=== PATIENT | female | born 1995 | race Caucasian/White ===

== ENCOUNTER 2018-08-13 05:58 | Inpatient (IN) ==
[2018-08-13] MEDS ORDERED: ONDANSETRON 4 MG/2 ML VIAL IV PRN ×2 (06:13→18:05)
[2018-08-13] MEDS ORDERED: MEPERIDINE 50 MG/1 ML VIAL IV PRN (06:13)
[2018-08-13] MEDS ORDERED: INFLUENZA VIRUS VACCINE 0.5 ML SYRINGE IM ONE (06:20)
[2018-08-13] MEDS ORDERED: OXYTOCIN/LR 20 UNIT/1,000 ML BAG IV SCH (06:30)
[2018-08-13] MEDS ORDERED: LACTATED RINGERS 1,000 ML IV SCH (06:30)
[2018-08-13 07:10] LABS: Basophils % 0.5 % (0.0-0.8); Eosinophils % 0.4 % (0.00-10.9); Hematocrit 32.4 VOL% (35.7-47.0); Hemoglobin 10.1 GM/DL (12.0-16.0); Immature Granulocytes % 0.5 %; Immature Granulocytes Absolute 0.03 #; Lymphocytes # 1.3 10*3/uL (1.4-4.0); Lymphocytes % 23.6 % (21.3-54.2); Mean Corpuscular HGB Conc 31.2 GM/DL (32-36); Mean Corpuscular Hemoglobin 27 PG (27-34); Mean Corpuscular Volume 86.2 FL (87-102); Mean Platelet Volume 11.7 FL (9.6-12.0); Monocytes # 0.5 10*3/uL (0.11-0.8); Monocytes % 8.8 % (1.7-12.7); Neutrophils # 3.7 10*3/uL (1.4-7.4); Neutrophils % 66.2 % (38.7-73.9); Platelet Count 180 T/CUMM (130-400); Red Blood Count 3.76 MC/CUMM (3.8-5.5); Red Cell Distribution Width 14.6 % (9.3-17.3); White Blood Count 5.6 T/CUMM (4-12)
[2018-08-13 07:48] LABS: Albumin 2.7 G/DL (3.4-5.0); Bilirubin,Total 1.1 MG/DL (0.2-1.0); Calcium 8.8 MG/DL (8.5-10.1); Osmolality,Calculated 267.1 MOS/KG (273-304); Potassium 3.9 MMOL/L (3.5-5.1)
[2018-08-13] MEDS ORDERED: FAMOTIDINE 20 MG/2 ML VIAL IV ONE (10:40)
[2018-08-13] MEDS ORDERED: CITRIC ACID/SODIUM CITRATE 30 ML UDCUP PO ONE (10:40)
[2018-08-13] MEDS ORDERED: ePHEDrine 50 MG/ML AMP ONE (10:51)
[2018-08-13] MEDS ORDERED: CARBOPROST TROMETHAMINE 250 MCG/ML AMP IM ONE ×2 (10:53→11:44)
[2018-08-13] MEDS ORDERED: fentaNYL 2 MCG/ROPIV 0.2% EPID 100 ML EPIDURAL SCH (11:00)
[2018-08-13] MEDS ORDERED: miSOPROStol 200 MCG TABLET ONE (11:44)
[2018-08-13] MEDS ORDERED: TRANEXAMIC ACID 1,000 MG/10 ML VIAL ONE (11:44)
[2018-08-13] MEDS ORDERED: METHYLERGONOVINE 0.2 MG/1 ML AMP ONE (11:44)
[2018-08-13] MEDS ORDERED: OXYTOCIN/LR 20 UNIT/1,000 ML BAG IV ONE (11:44)
[2018-08-13 13:20] LABS: Cord Venous Blood PO2 35.3
[2018-08-13] MEDS ORDERED: BISACODYL 10 MG SUPP RECTAL PRN (16:11)
[2018-08-13] MEDS ORDERED: RHO(D) IMMUNE GLOBULIN 300 MCG SYRINGE IM ONE (16:11)
[2018-08-13] MEDS ORDERED: WITCH HAZEL PADS 100/JAR TOP PRN (16:11)
[2018-08-13] MEDS ORDERED: DIPH/TET/ACEL PERT BOOSTER VACCINE 0.5 ML VIAL IM ONE (16:11)
[2018-08-13] MEDS ORDERED: LANOLIN 50% CREAM 0.3 OZ TUBE TOP PRN (16:11)
[2018-08-13] MEDS ORDERED: HYDROCORTISONE 2.5% RECTAL CREAM 30 GM TUBE TOP PRN (16:11)
[2018-08-13] MEDS ORDERED: ACETAMINOPHEN 325 MG TABLET PO PRN (16:11)
[2018-08-13] MEDS ORDERED: MEASLES/MUMPS/RUBELLA VACCINE 0.5 ML VIAL SUBCUT ONE (16:11)
[2018-08-13] MEDS ORDERED: ACETAMINOPHEN/CODEINE 300-30 MG TABLET PO PRN (16:11)
[2018-08-13] MEDS ORDERED: BENZOCAINE 20%/MENTHOL 0.5% SPRAY 56 GM CAN TOP PRN (16:11)
[2018-08-13] MEDS ORDERED: oxyCODONE/ACETAMINOPHEN 5-325 MG TABLET PO PRN ×2 (16:11)
[2018-08-13] MEDS: DOCUSATE SODIUM 100 MG CAPSULE PO SCH (21:35)
[2018-08-13] MEDS: IBUPROFEN 800 MG TABLET PO PRN (22:05)
[2018-08-14 05:36] LABS: Basophils % 0.2 % (0.0-0.8); Eosinophils % 0.3 % (0.00-10.9); Hematocrit 27.6 VOL% (35.7-47.0); Hemoglobin 8.7 GM/DL (12.0-16.0); Immature Granulocytes % 0.5 %; Immature Granulocytes Absolute 0.05 #; Lymphocytes # 1.5 10*3/uL (1.4-4.0); Lymphocytes % 16.1 % (21.3-54.2); Mean Corpuscular HGB Conc 31.5 GM/DL (32-36); Mean Corpuscular Hemoglobin 27 PG (27-34); Mean Corpuscular Volume 86.5 FL (87-102); Mean Platelet Volume 11.7 FL (9.6-12.0); Monocytes # 0.9 10*3/uL (0.11-0.8); Monocytes % 9.3 % (1.7-12.7); Neutrophils % 73.6 % (38.7-73.9); Platelet Count 136 T/CUMM (130-400); Red Blood Count 3.19 MC/CUMM (3.8-5.5); Red Cell Distribution Width 14.5 % (9.3-17.3); White Blood Count 9.6 T/CUMM (4-12)
[2018-08-14] MEDS: DOCUSATE SODIUM 100 MG CAPSULE PO SCH ×2 (09:37→20:26)
[2018-08-14] MEDS: FERROUS SULFATE 325 MG TABLET PO SCH ×2 (09:37→20:26)
[2018-08-14] MEDS: IBUPROFEN 800 MG TABLET PO PRN (09:39)
[2018-08-15 07:52] VITALS: BP 113/76
[2018-08-15] MEDS: DOCUSATE SODIUM 100 MG CAPSULE PO SCH (09:27)
[2018-08-15] MEDS: FERROUS SULFATE 325 MG TABLET PO SCH (09:27)
[2018-08-15] MEDS ORDERED: INFLUENZA VIRUS VACCINE 0.5 ML SYRINGE IM ONE (09:45)
== END 2018-08-15 16:00 | disposition home or self-care (01) | DRG 560 ==
LOC: N.LDOUT 05:58 → N.LD 06:00 → N.OB 15:56
PROVIDERS: ADMIT Obstetrics & Gynecology; ATTEND Obstetrics & Gynecology

== ENCOUNTER 2020-05-23 05:23 | Inpatient (IN) ==
[2020-05-23] MEDS ORDERED: OXYTOCIN/LR 20 UNIT/1,000 ML BAG IV SCH (05:30)
[2020-05-23] MEDS ORDERED: ONDANSETRON 4 MG/2 ML VIAL IV PRN ×2 (05:30→18:33)
[2020-05-23] MEDS ORDERED: ACETAMINOPHEN 325 MG TABLET PO PRN ×2 (05:30→18:33)
[2020-05-23] MEDS ORDERED: LACTATED RINGERS 1,000 ML IV PRN (05:30)
[2020-05-23] MEDS ORDERED: MEPERIDINE 50 MG/1 ML VIAL IV PRN (05:30)
[2020-05-23] MEDS ORDERED: BUTORPHANOL 2 MG/ML VIAL IV PRN (05:30)
[2020-05-23] MEDS ORDERED: INFLUENZA VIRUS VACCINE 0.5 ML SYRINGE IM ONE (05:40)
[2020-05-23 05:59] LABS: Basophils % 0.3 % (0.0-0.8); Eosinophils # 0.1 10*3/uL (0.0-0.87); Eosinophils % 1.6 % (0.00-10.9); Hematocrit 31.5 VOL% (35.7-47.0); Hemoglobin 10.2 GM/DL (12.0-16.0); Immature Granulocytes % 0.5 %; Immature Granulocytes Absolute 0.03 #; Lymphocytes # 1.5 10*3/uL (1.4-4.0); Lymphocytes % 25.2 % (21.3-54.2); Mean Corpuscular HGB Conc 32.4 GM/DL (32-36); Mean Corpuscular Volume 86.5 FL (87-102); Mean Platelet Volume 11.2 FL (9.6-12.0); Monocytes % 7.4 % (1.7-12.7); Platelet Count 142 T/CUMM (130-400); Red Blood Count 3.64 MC/CUMM (3.8-5.5); Red Cell Distribution Width 13.6 % (9.3-17.3); White Blood Count 6.1 T/CUMM (4-12)
[2020-05-23 06:52] LABS: Bilirubin,Urine Negative (Negative); Blood, Urine Negative (Negative); Glucose,Urine (UA) Negative (Negative); Ketones,Urine Negative (Negative); Mucus,Urine Occasional /LPF (Occasional); Nitrite,Urine Negative (Negative); Protein,Urine Negative; Squamous Epithelial Cell,Urine Occasional /HPF (0-10); Urine Appearance CLEAR (Clear); Urine Color Yellow (Yellow); Urine Urobilinogen < 2.0 EU/DL (0.2-1.0)
[2020-05-23] MEDS ORDERED: FAMOTIDINE 20 MG/2 ML VIAL IV ONE (12:48)
[2020-05-23] MEDS ORDERED: PROMETHAZINE 25 MG/1 ML VIAL IM ONE (12:48)
[2020-05-23] MEDS ORDERED: NALOXONE 0.4 MG/ML VIAL IV PRN (12:48)
[2020-05-23] MEDS ORDERED: CITRIC ACID/SODIUM CITRATE 30 ML UDCUP PO ONE (12:48)
[2020-05-23] MEDS ORDERED: diphenhydrAMINE 50 MG/1 ML VIAL IV PRN ×2 (12:48)
[2020-05-23] MEDS ORDERED: hydrOXYzine HCL 25 MG/1 ML VIAL IM PRN (12:48)
[2020-05-23] MEDS ORDERED: ePHEDrine 50 MG/ML VIAL IV PRN (12:48)
[2020-05-23] MEDS ORDERED: LACTATED RINGERS 1,000 ML IV ONE (12:48)
[2020-05-23] MEDS ORDERED: fentaNYL 2 MCG/ROPIV 0.2% EPID 100 ML EPIDURAL SCH (13:00)
[2020-05-23 15:01] LABS: Cord Venous Blood HCO3 24.6 MMOL/L; Cord Venous Blood PCO2 37.3 MMHG; Cord Venous Blood PO2 33.5
[2020-05-23] MEDS ORDERED: WITCH HAZEL PADS 100/JAR TOP PRN (18:33)
[2020-05-23] MEDS ORDERED: BISACODYL 10 MG SUPP RECTAL PRN (18:33)
[2020-05-23] MEDS ORDERED: DIPH/TET/ACEL PERT BOOSTER VACCINE 0.5 ML VIAL IM ONE (18:33)
[2020-05-23] MEDS ORDERED: LANOLIN 50% CREAM 0.3 OZ TUBE TOP PRN (18:33)
[2020-05-23] MEDS ORDERED: HYDROCORTISONE 2.5% RECTAL CREAM 30 GM TUBE TOP PRN (18:33)
[2020-05-23] MEDS ORDERED: IBUPROFEN 800 MG TABLET PO PRN (18:33)
[2020-05-23] MEDS ORDERED: BENZOCAINE 20%/MENTHOL 0.5% SPRAY 56 GM CAN TOP PRN (18:33)
[2020-05-23] MEDS ORDERED: oxyCODONE/ACETAMINOPHEN 5-325 MG TABLET PO PRN ×2 (18:33)
[2020-05-23] MEDS: DOCUSATE SODIUM 100 MG CAPSULE PO SCH (21:35)
[2020-05-24 05:42] LABS: Basophils % 0.1 % (0.0-0.8); Eosinophils # 0.1 10*3/uL (0.0-0.87); Eosinophils % 0.7 % (0.00-10.9); Hematocrit 31.5 VOL% (35.7-47.0); Hemoglobin 10.2 GM/DL (12.0-16.0); Immature Granulocytes % 0.6 %; Immature Granulocytes Absolute 0.05 #; Lymphocytes # 1.2 10*3/uL (1.4-4.0); Lymphocytes % 13.4 % (21.3-54.2); Mean Corpuscular HGB Conc 32.4 GM/DL (32-36); Mean Platelet Volume 11.4 FL (9.6-12.0); Monocytes % 7.2 % (1.7-12.7); Platelet Count 145 T/CUMM (130-400); Red Blood Count 3.62 MC/CUMM (3.8-5.5); Red Cell Distribution Width 13.7 % (9.3-17.3); White Blood Count 8.7 T/CUMM (4-12)
[2020-05-24] MEDS: DOCUSATE SODIUM 100 MG CAPSULE PO SCH ×2 (08:56→21:25)
[2020-05-24] MEDS: ACETAMINOPHEN/CODEINE 300-30 MG TABLET PO PRN ×2 (18:36→22:43)
[2020-05-25 09:07] VITALS: BP 93/59
[2020-05-25 13:15] LABS: Bacteria,Urine Many /HPF (Few); Bilirubin,Urine Negative (Negative); Blood, Urine Moderate mg/dL (Negative); Glucose,Urine (UA) Negative (Negative); Ketones,Urine Negative (Negative); Nitrite,Urine Positive (Negative); Protein,Urine Negative; RBC,Urine 17 /HPF (0-4); Squamous Epithelial Cell,Urine Occasional /HPF (0-10); Urine Appearance Slightly Hazy (Clear); Urine Color Yellow (Yellow); Urine Specific Gravity 1.016 (1.001-1.035); WBC,Urine 60 /HPF (0-6)
== END 2020-05-25 13:45 | disposition home or self-care (01) | DRG 560 ==
LOC: N.LD 05:23 → N.OB 18:16
PROVIDERS: ADMIT Obstetrics & Gynecology; ATTEND Obstetrics & Gynecology

== ENCOUNTER 2022-03-27 00:02 | Inpatient (IN) ==
[2022-03-27] MEDS ORDERED: METHYLERGONOVINE 0.2 MG/1 ML AMP IM PRN (00:28)
[2022-03-27] MEDS ORDERED: TRANEXAMIC ACID 1,000 MG in SODIUM CHLORIDE 0.9% 100 ML IV PRN (00:28)
[2022-03-27] MEDS ORDERED: ONDANSETRON 4 MG/2 ML VIAL IV PRN (00:28)
[2022-03-27] MEDS ORDERED: OXYTOCIN/LR 20 UNIT/1,000 ML BAG IV ONE ×2 (00:28→06:42)
[2022-03-27] MEDS ORDERED: MEPERIDINE 50 MG/1 ML VIAL IV PRN (00:28)
[2022-03-27] MEDS ORDERED: CARBOPROST TROMETHAMINE 250 MCG/ML AMP IM PRN (00:28)
[2022-03-27] MEDS ORDERED: miSOPROStoL 200 MCG TABLET RECTAL PRN (00:28)
[2022-03-27] MEDS ORDERED: LACTATED RINGERS 1,000 ML IV SCH (00:30)
[2022-03-27] MEDS ORDERED: LACTATED RINGERS 1,000 ML IV ONE (00:31)
[2022-03-27] MEDS ORDERED: FAMOTIDINE 20 MG/2 ML VIAL IV ONE (00:31)
[2022-03-27] MEDS ORDERED: NALOXONE 0.4 MG/ML VIAL IV PRN (00:31)
[2022-03-27] MEDS ORDERED: diphenhydrAMINE 50 MG/1 ML VIAL IV PRN ×2 (00:31)
[2022-03-27] MEDS ORDERED: hydrOXYzine HCL 25 MG/1 ML VIAL IM PRN (00:31)
[2022-03-27] MEDS ORDERED: ePHEDrine 50 MG/ML VIAL IV PRN (00:31)
[2022-03-27] MEDS ORDERED: PROMETHAZINE 25 MG/1 ML VIAL IM ONE (00:31)
[2022-03-27] MEDS ORDERED: CITRIC ACID/SODIUM CITRATE 30 ML UDCUP PO ONE (00:31)
[2022-03-27 00:54] LABS: Basophils % 0.3 % (0.0-0.8); Eosinophils # 0.1 10*3/uL (0.0-0.87); Eosinophils % 0.6 % (0.00-10.9); Hemoglobin 10.7 GM/DL (12.0-16.0); Immature Granulocytes % 0.4 %; Immature Granulocytes Absolute 0.04 #; Lymphocytes # 1.1 10*3/uL (1.4-4.0); Lymphocytes % 11.2 % (21.3-54.2); Mean Corpuscular HGB Conc 31.5 GM/DL (32-36); Mean Platelet Volume 11.4 FL (9.6-12.0); Monocytes # 0.7 10*3/uL (0.11-0.8); Monocytes % 6.7 % (1.7-12.7); Neutrophils % 80.8 % (38.7-73.9); Platelet Count 172 T/CUMM (130-400); Red Cell Distribution Width 15.4 % (9.3-17.3); White Blood Count 9.9 T/CUMM (4-12)
[2022-03-27] MEDS ORDERED: fentaNYL 2 MCG/ROPIV 0.2% EPID 100 ML EPIDURAL SCH (01:00)
[2022-03-27 01:18] LABS: Albumin 2.9 G/DL (3.4-5.0); Bilirubin,Total 0.6 MG/DL (0.20-1.00); Calcium 9.2 MG/DL (8.5-10.1); Potassium 3.8 MMOL/L (3.5-5.1); Total Protein 7.2 G/DL (6.4-8.2); Uric Acid 4.3 MG/DL (2.6-6.0)
[2022-03-27 04:54] LABS: Cord Arterial Blood HCO3 21.2 MMOL/L
[2022-03-27 04:58] LABS: Cord Venous Blood HCO3 24.2 MMOL/L; Cord Venous Blood PCO2 45.8 MMHG; Cord Venous Blood PO2 25.2
[2022-03-27] MEDS ORDERED: DIPH/TET/ACEL PERT BOOSTER VACCINE 0.5 ML VIAL IM ONE (06:42)
[2022-03-27] MEDS ORDERED: LANOLIN 50% CREAM 0.3 OZ TUBE TOP PRN (06:42)
[2022-03-27] MEDS ORDERED: BISACODYL 10 MG SUPP RECTAL PRN (06:42)
[2022-03-27] MEDS ORDERED: IBUPROFEN 800 MG TABLET PO PRN (06:42)
[2022-03-27] MEDS ORDERED: BENZOCAINE 20%/MENTHOL 0.5% SPRAY 56 GM CAN TOP PRN (06:42)
[2022-03-27] MEDS ORDERED: HYDROCORTISONE 2.5% RECTAL CREAM 30 GM TUBE TOP PRN (06:42)
[2022-03-27] MEDS ORDERED: oxyCODONE/ACETAMINOPHEN 5-325 MG TABLET PO PRN ×2 (06:42)
[2022-03-27] MEDS ORDERED: MEASLES/MUMPS/RUBELLA VACCINE 0.5 ML VIAL SUBCUT ONE (06:42)
[2022-03-27] MEDS ORDERED: RHO(D) IMMUNE GLOBULIN 300 MCG SYRINGE IM ONE (06:42)
[2022-03-27] MEDS ORDERED: ACETAMINOPHEN 325 MG TABLET PO PRN (06:42)
[2022-03-27] MEDS ORDERED: WITCH HAZEL PADS 100/JAR TOP PRN (06:42)
[2022-03-27] MEDS: DOCUSATE SODIUM 100 MG CAPSULE PO SCH ×2 (09:00→20:57)
[2022-03-28 06:01] LABS: Basophils % 0.1 % (0.0-0.8); Eosinophils # 0.1 10*3/uL (0.0-0.87); Eosinophils % 0.6 % (0.00-10.9); Hematocrit 27.8 VOL% (35.7-47.0); Hemoglobin 8.5 GM/DL (12.0-16.0); Immature Granulocytes % 0.6 %; Immature Granulocytes Absolute 0.05 #; Lymphocytes # 1.5 10*3/uL (1.4-4.0); Lymphocytes % 17.3 % (21.3-54.2); Mean Corpuscular HGB Conc 30.6 GM/DL (32-36); Mean Corpuscular Volume 84.2 FL (87-102); Monocytes # 0.6 10*3/uL (0.11-0.8); Monocytes % 6.9 % (1.7-12.7); Neutrophils % 74.5 % (38.7-73.9); Platelet Count 141 T/CUMM (130-400); Red Cell Distribution Width 15.4 % (9.3-17.3); White Blood Count 8.4 T/CUMM (4-12)
[2022-03-28] MEDS: DOCUSATE SODIUM 100 MG CAPSULE PO SCH (08:43)
[2022-03-28 13:50] VITALS: BP 85/54
== END 2022-03-28 16:30 | disposition home or self-care (01) | DRG 560 ==
LOC: N.LDOUT 00:02 → N.LD 00:04 → N.OB 08:24
PROVIDERS: ADMIT Obstetrics & Gynecology; ATTEND Obstetrics & Gynecology